=== PATIENT | male | born 1955 | race Caucasian/White ===

== ENCOUNTER → 2024-03-12 14:10 | Outpatient (CLI) | payer MEDICARE, SELFPAY | LOC: WC 14:34 | PROVIDERS: Visit Provider Surgery | DX: L59.8 Other specified disorders of the skin and subcutaneous tissue related to radiation (principal); K12.33 Oral mucositis (ulcerative) due to radiation; C10.9 Malignant neoplasm of oropharynx, unspecified | CPT/HCPCS: 99203; 99212 ==

== ENCOUNTER → 2024-04-01 09:56 | Outpatient (CLI) | payer MEDICARE, SELFPAY ==
--- NOTE | 2024-04-01 09:58 | DI.RAD.S_ITS ---
PROCEDURE: XR CHEST 2V INDICATIONS: Evaluate for HBO treatment TECHNIQUE: 2 views of the chest were acquired. COMPARISON: None. FINDINGS: Surgical changes and devices: A small tube projects over the epigastric region. Lungs and pleura: Lungs are clear. No pleural effusions or pneumothorax. Scar in the right lung apex. Mediastinum: Mediastinal contours are normal. Heart size is normal. Bones and chest wall: No suspicious bony abnormalities. Soft tissues appear unremarkable. IMPRESSION: No acute cardiopulmonary abnormality is seen. Dictated by: Suzanna Kaur M.D. on 04/01/2024 at 13:59 Approved by: Suzanna Kaur M.D. on 04/01/2024 at 14:01
== END ==
LOC: RAD 09:58
PROVIDERS: PCP Student in an Organized Health Care Education/Training Program; Referring Provider Surgery; Visit Provider Surgery
DX: Z01.810 Encounter for preprocedural cardiovascular examination (principal); L59.8 Other specified disorders of the skin and subcutaneous tissue related to radiation
CPT/HCPCS: 71046

== ENCOUNTER → 2024-04-10 08:48 | Outpatient (CLI) | payer MEDICARE, OTHER, SELFPAY | PROVIDERS: PCP Student in an Organized Health Care Education/Training Program; Visit Provider Surgery | DX: L59.8 Other specified disorders of the skin and subcutaneous tissue related to radiation (principal); C10.9 Malignant neoplasm of oropharynx, unspecified; K12.33 Oral mucositis (ulcerative) due to radiation | CPT/HCPCS: 99183; G0277 ==

== ENCOUNTER → 2024-04-11 09:08 | Outpatient (CLI) | payer MEDICARE, OTHER, SELFPAY | PROVIDERS: PCP Student in an Organized Health Care Education/Training Program; Visit Provider Surgery | DX: L59.8 Other specified disorders of the skin and subcutaneous tissue related to radiation (principal); C10.9 Malignant neoplasm of oropharynx, unspecified; K12.33 Oral mucositis (ulcerative) due to radiation | CPT/HCPCS: 99183; G0277 ==

== ENCOUNTER → 2024-04-12 09:38 | Outpatient (CLI) | payer MEDICARE, SELFPAY | LOC: WC 09:48 | PROVIDERS: PCP Student in an Organized Health Care Education/Training Program; Referring Provider Student in an Organized Health Care Education/Training Program; Visit Provider Physician Assistant | DX: L59.8 Other specified disorders of the skin and subcutaneous tissue related to radiation (principal); C10.9 Malignant neoplasm of oropharynx, unspecified; K12.33 Oral mucositis (ulcerative) due to radiation | CPT/HCPCS: 99183; G0277 ==

== ENCOUNTER → 2024-04-15 08:34 | Outpatient (CLI) | payer MEDICARE, SELFPAY | LOC: WC 08:34 | PROVIDERS: PCP Student in an Organized Health Care Education/Training Program; Visit Provider Surgery | DX: L59.8 Other specified disorders of the skin and subcutaneous tissue related to radiation (principal); C10.9 Malignant neoplasm of oropharynx, unspecified; K12.33 Oral mucositis (ulcerative) due to radiation | CPT/HCPCS: 99183; G0277 ==

== ENCOUNTER → 2024-04-16 08:49 | Outpatient (CLI) | payer MEDICARE, SELFPAY | LOC: WC 09:17 | PROVIDERS: PCP Student in an Organized Health Care Education/Training Program; Visit Provider Surgery | DX: L59.8 Other specified disorders of the skin and subcutaneous tissue related to radiation (principal); K12.33 Oral mucositis (ulcerative) due to radiation; C10.9 Malignant neoplasm of oropharynx, unspecified | CPT/HCPCS: 99183; 99211; 99213; G0277 ==

== ENCOUNTER → 2024-04-17 08:34 | Outpatient (CLI) | payer MEDICARE, SELFPAY | LOC: WC 08:35 | PROVIDERS: PCP Student in an Organized Health Care Education/Training Program; Visit Provider Surgery | DX: L59.8 Other specified disorders of the skin and subcutaneous tissue related to radiation (principal); C10.9 Malignant neoplasm of oropharynx, unspecified; K12.33 Oral mucositis (ulcerative) due to radiation | CPT/HCPCS: 99183; G0277 ==

== ENCOUNTER → 2024-04-18 09:12 | Outpatient (CLI) | payer MEDICARE, SELFPAY | LOC: WC 09:14 | PROVIDERS: PCP Student in an Organized Health Care Education/Training Program; Visit Provider Nurse Practitioner Family | DX: L59.8 Other specified disorders of the skin and subcutaneous tissue related to radiation (principal); C10.9 Malignant neoplasm of oropharynx, unspecified; K12.33 Oral mucositis (ulcerative) due to radiation | CPT/HCPCS: 99183; G0277 ==

== ENCOUNTER → 2024-04-19 08:29 | Outpatient (CLI) | payer MEDICARE, SELFPAY | PROVIDERS: PCP Student in an Organized Health Care Education/Training Program; Visit Provider Physician Assistant | DX: L59.8 Other specified disorders of the skin and subcutaneous tissue related to radiation (principal); C10.9 Malignant neoplasm of oropharynx, unspecified; K12.33 Oral mucositis (ulcerative) due to radiation | CPT/HCPCS: 99183; G0277 ==

== ENCOUNTER → 2024-04-22 08:38 | Outpatient (CLI) | payer MEDICARE, SELFPAY | LOC: WC 08:39 | PROVIDERS: PCP Student in an Organized Health Care Education/Training Program; Visit Provider Physician Assistant | DX: L59.8 Other specified disorders of the skin and subcutaneous tissue related to radiation (principal); C10.9 Malignant neoplasm of oropharynx, unspecified; K12.33 Oral mucositis (ulcerative) due to radiation | CPT/HCPCS: 99183; G0277 ==

== ENCOUNTER → 2024-04-23 08:28 | Outpatient (CLI) | payer MEDICARE, OTHER, SELFPAY | PROVIDERS: PCP Student in an Organized Health Care Education/Training Program; Visit Provider Physician Assistant | DX: L59.8 Other specified disorders of the skin and subcutaneous tissue related to radiation (principal); C10.9 Malignant neoplasm of oropharynx, unspecified; K12.33 Oral mucositis (ulcerative) due to radiation | CPT/HCPCS: 99183; G0277 ==

== ENCOUNTER → 2024-04-24 08:53 | Outpatient (CLI) | payer MEDICARE, OTHER, SELFPAY | PROVIDERS: PCP Student in an Organized Health Care Education/Training Program; Visit Provider Nurse Practitioner Family | DX: L59.8 Other specified disorders of the skin and subcutaneous tissue related to radiation (principal); C10.9 Malignant neoplasm of oropharynx, unspecified; K12.33 Oral mucositis (ulcerative) due to radiation | CPT/HCPCS: 99183; G0277 ==

== ENCOUNTER → 2024-04-25 09:05 | Outpatient (CLI) | payer MEDICARE, SELFPAY | LOC: WC 09:05 | PROVIDERS: PCP Student in an Organized Health Care Education/Training Program; Visit Provider Nurse Practitioner Family | DX: L59.8 Other specified disorders of the skin and subcutaneous tissue related to radiation (principal); C10.9 Malignant neoplasm of oropharynx, unspecified; K12.33 Oral mucositis (ulcerative) due to radiation | CPT/HCPCS: 99183; G0277 ==

== ENCOUNTER → 2024-04-26 09:26 | Outpatient (CLI) | payer MEDICARE, SELFPAY | LOC: WC 09:33 | PROVIDERS: PCP Student in an Organized Health Care Education/Training Program; Visit Provider Physician Assistant | DX: L59.8 Other specified disorders of the skin and subcutaneous tissue related to radiation (principal); C10.9 Malignant neoplasm of oropharynx, unspecified; K12.33 Oral mucositis (ulcerative) due to radiation | CPT/HCPCS: 99183; G0277 ==

== ENCOUNTER → 2024-04-29 09:40 | Outpatient (CLI) | payer MEDICARE, SELFPAY | LOC: WC 09:41 | PROVIDERS: PCP Student in an Organized Health Care Education/Training Program; Visit Provider Surgery | DX: L59.8 Other specified disorders of the skin and subcutaneous tissue related to radiation (principal); C10.9 Malignant neoplasm of oropharynx, unspecified; K12.33 Oral mucositis (ulcerative) due to radiation | CPT/HCPCS: 99183; G0277 ==

== ENCOUNTER → 2024-04-30 08:28 | Outpatient (CLI) | payer MEDICARE, SELFPAY | LOC: WC 08:29 | PROVIDERS: PCP Student in an Organized Health Care Education/Training Program; Visit Provider Surgery | DX: L59.8 Other specified disorders of the skin and subcutaneous tissue related to radiation (principal); C10.9 Malignant neoplasm of oropharynx, unspecified; K12.33 Oral mucositis (ulcerative) due to radiation | CPT/HCPCS: 99183; G0277 ==

== ENCOUNTER → 2024-05-01 10:17 | Outpatient (CLI) | payer MEDICARE, SELFPAY | LOC: WC 10:22 | PROVIDERS: PCP Student in an Organized Health Care Education/Training Program; Visit Provider Surgery | DX: L59.8 Other specified disorders of the skin and subcutaneous tissue related to radiation (principal); C10.9 Malignant neoplasm of oropharynx, unspecified; K12.33 Oral mucositis (ulcerative) due to radiation | CPT/HCPCS: 99183; G0277 ==

== ENCOUNTER → 2024-05-02 08:33 | Outpatient (CLI) | payer MEDICARE, SELFPAY | LOC: WC 08:34 | PROVIDERS: PCP Student in an Organized Health Care Education/Training Program; Visit Provider Surgery | DX: L59.8 Other specified disorders of the skin and subcutaneous tissue related to radiation (principal); C10.9 Malignant neoplasm of oropharynx, unspecified; K12.33 Oral mucositis (ulcerative) due to radiation | CPT/HCPCS: 99183; G0277 ==

== ENCOUNTER → 2024-05-03 09:22 | Outpatient (CLI) | payer MEDICARE, SELFPAY | LOC: WC 09:23 | PROVIDERS: PCP Student in an Organized Health Care Education/Training Program; Visit Provider Physician Assistant | DX: L59.8 Other specified disorders of the skin and subcutaneous tissue related to radiation (principal); C10.9 Malignant neoplasm of oropharynx, unspecified; K12.33 Oral mucositis (ulcerative) due to radiation | CPT/HCPCS: 99183; G0277 ==

== ENCOUNTER → 2024-05-06 08:40 | Outpatient (CLI) | payer MEDICARE, SELFPAY | PROVIDERS: PCP Student in an Organized Health Care Education/Training Program; Visit Provider Surgery | DX: L59.8 Other specified disorders of the skin and subcutaneous tissue related to radiation (principal); C10.9 Malignant neoplasm of oropharynx, unspecified; K12.33 Oral mucositis (ulcerative) due to radiation | CPT/HCPCS: 99183; G0277 ==

== ENCOUNTER → 2024-05-06 11:50 | Outpatient (CLI) | payer MEDICARE, OTHER, SELFPAY ==
[2024-05-06 12:32] LABS: Estimated Glomerular Filt Rate > 60 mL/min (>60)
== END ==
PROVIDERS: PCP Student in an Organized Health Care Education/Training Program; Referring Provider Radiology Diagnostic Radiology; Visit Provider Radiology Diagnostic Radiology
DX: C10.9 Malignant neoplasm of oropharynx, unspecified (principal); K76.0 Fatty (change of) liver, not elsewhere classified; L59.8 Other specified disorders of the skin and subcutaneous tissue related to radiation; K12.33 Oral mucositis (ulcerative) due to radiation
CPT/HCPCS: 82565; G0277

== ENCOUNTER → 2024-05-07 09:03 | Outpatient (CLI) | payer MEDICARE, SELFPAY | PROVIDERS: PCP Student in an Organized Health Care Education/Training Program; Visit Provider Surgery | DX: L59.8 Other specified disorders of the skin and subcutaneous tissue related to radiation (principal); C10.9 Malignant neoplasm of oropharynx, unspecified; K12.33 Oral mucositis (ulcerative) due to radiation | CPT/HCPCS: 99183; G0277 ==

== ENCOUNTER → 2024-05-07 12:52 | Outpatient (CLI) | payer MEDICARE, SELFPAY ==
--- NOTE | 2024-05-07 12:55 | DI.CT.S_ITS ---
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 Additional oblique axial 3.0 mm sections acquired through the pharynx. 3 mm thick coronal and sagittal reformats were generated. For radiation dose reduction, the following was used: automated exposure control. COMPARISON: [place], [place], [place] PET CT FUSION SKULL 2 THIGH, 01/17/2024, 12:59. FINDINGS: Image quality: Excellent. Lymph nodes: No enlarged lymph nodes seen throughout the neck. Vessels: Visualized vasculature appears patent. Mild atherosclerotic vascular calcifications. Neck spaces: Cystic necrotic appearing collection within the right palatine region of prior mass measuring 3.1 x 1.9 x 2.4 centimeters (AP by TV by cc). This is mostly fluid-filled with a few locules of gas. The vocal cords, false vocal cords, pyriform sinuses, epiglottis, vallecula, and tongue base all appear normal. Extramucosal spaces appear unremarkable. Glands: The parotid and submandibular glands appear normal. Thyroid gland demonstrates no significant abnormality. Miscellaneous: Visualized brain and orbits appear normal. Biapical pleuroparenchymal scarring. Lung apices are otherwise clear. Superficial soft tissues appear normal. Bones: No suspicious bony lesions. Mild maxillary sinus mucosal thickening. Bilateral maxillary molars are absent with lucency seen in the areas of prior teeth, this is stable in appearance compared to prior. [id number] bilateral TMJ arthritis. Partial opacification of the bilateral mastoid air cells. Degenerative changes of the spine. IMPRESSION: In the region of prior right palatine mass, there is a cystic necrotic appearing area measuring 3.1 x 1.9 x 2.4 centimeters, mostly containing fluid with small locules of gas. Findings may be post treatment in etiology. Infection is also in the differential and direct visualization is recommended for further evaluation. Attention on follow-up imaging to exclude recurrent disease. Within the right parapharyngeal mass scatter spaces, there is thickening of the muscle and edema within the fat planes which is likely reactive in etiology. Attention on follow-up. No enlarged cervical lymph nodes. Stable appearance of multiple maxillary molars missing with osseous lucency seen within the region of prior molars. Recommend clinical correlation and dental exam as clinically indicated. 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 Dictated by: Ernesto Gorman M.D. on 05/09/2024 at 13:59 Approved by: Ernesto Gorman M.D. on 05/09/2024 at 14:10
--- NOTE | 2024-05-07 12:55 | DI.CT.S_ITS ---
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 After the administration of intravenous contrast, 5 mm thick sections acquired from the lung apices to the iliac crests. 5 mm coronal and sagittal reformats were performed, with additional 7 mm coronal MIP reformats through the lungs. For radiation dose reduction, the following was used: automated exposure control, adjustment of mA and/or kV according to patient size. COMPARISON: [facility], [place], CT NECK AND CHEST, 11/29/2023, 12:56. [facility], [place], [place] PET CT FUSION SKULL 2 THIGH, 01/17/2024, 12:59. [facility], CT, CT SOFT TISSUE NECK W CON, 05/07/2024, 14:01. [facility], CT, CT HEAD/BRAIN WO/W CON, 05/07/2024, 14:01. FINDINGS: Image quality: Diagnostic. CHEST: Lower Neck: No enlarged lymph nodes. Thyroid: No thyroid nodules which require sonographic follow up, per consensus guidelines. Axillae: No enlarged lymph nodes. Chest Wall: Unremarkable. Bones: Unremarkable. Lungs and Pleura: No pneumothorax or pleural effusions. No consolidation or suspicious nodules. The previously seen potential left upper lobe nodule is not seen on the current study. Heart: Heart size is normal. No pericardial effusion. Prominent coronary artery calcification is seen. Thoracic Vessels: The aorta and pulmonary arteries demonstrate normal size. Mediastinum and Debra: No enlarged lymph nodes. Esophagus: No wall thickening. No hiatal hernia. ABDOMEN: Liver: No solid mass. Gallbladder: No radiopaque gallstones or wall thickening. Biliary ducts: No biliary dilation. Pancreas: No ductal dilation. Spleen: Size is within normal limits. Adrenal Glands: No adrenal nodules. Kidneys and Ureters: No hydronephrosis. No solid mass. No complex renal cystic lesion which requires follow up. There is a 4 mm nonobstructing right-sided kidney stone. A 1 mm nonobstructing left-sided kidney stone is also seen. Stomach and Bowel: A gastrostomy tube is seen in place. Normal colonic caliber, without significant wall thickening. Colonic diverticulosis is seen, without findings of active diverticulitis. No dilated loops of small bowel are seen. Peritoneum: No abnormal intraperitoneal fluid. No free air. Ventral Wall: No significant ventral hernia. Abdominal Nodes: No retroperitoneal or mesenteric adenopathy by size criteria. Vessels: Aorta and inferior vena cava are normal in size. Atherosclerotic calcification is noted. PELVIS: Pelvic Organs: Unremarkable. Bladder: No bladder wall thickening, accounting for underdistention. Pelvic Nodes: No enlarged lymph nodes. Miscellaneous: No inguinal hernias are seen. Bones: No aggressive osseous abnormality. No focal abnormality of the T4 level is seen. This patient has transitional lumbar anatomy. There are 12 pairs of ribs. The L5 level is transitional and is highly sacralized on the right. Mild levoconvex scoliotic curvature is noted. Age-appropriate bony degenerative changes are seen. IMPRESSION: No findings of metastatic disease can be seen. The previously seen potential left upper lobe nodule is not seen on the current study. No focal abnormality seen at the T4 level. 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 on 05/08/2024 at 10:18 Approved by: Dashawn Lau M.D. on 05/08/2024 at 10:25
--- NOTE | 2024-05-07 12:55 | DI.CT.S_ITS ---
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 For radiation dose reduction, the following was used: automated exposure control, adjustment of mA and/or kV according to patient size. COMPARISON: None. FINDINGS: Image quality: Excellent. CSF Spaces: Basal cisterns are patent. No extra-axial fluid collections. Ventricles are normal in size and shape. Brain: No midline shift. No intracranial bleeds or masses. No abnormal intracranial enhancement. Knowles-white interface appears normal. Skull and face: Calvarium and visualized facial bones appear intact, without suspicious lesions. Sinuses: Mild mucosal thickening noted along the floor of the maxillary sinuses IMPRESSION: Unremarkable CT of the brain with and without contrast Approved by: Abe John M.D. on 05/08/2024 at 18:20
== END ==
PROVIDERS: PCP Student in an Organized Health Care Education/Training Program; Referring Provider Radiology Radiation Oncology; Visit Provider Radiology Radiation Oncology
DX: C05.1 Malignant neoplasm of soft palate (principal); C76.0 Malignant neoplasm of head, face and neck; I25.10 Atherosclerotic heart disease of native coronary artery without angina pectoris; N20.0 Calculus of kidney; K57.90 Diverticulosis of intestine, part unspecified, without perforation or abscess without bleeding; M41.9 Scoliosis, unspecified; M26.643 Arthritis of bilateral temporomandibular joint; Z93.1 Gastrostomy status
CPT/HCPCS: 70470; 70491; 71260; 74160; Q9967

== ENCOUNTER → 2024-05-08 08:40 | Outpatient (CLI) | payer MEDICARE, SELFPAY | LOC: WC 08:41 | PROVIDERS: PCP Student in an Organized Health Care Education/Training Program; Visit Provider Surgery | DX: L59.8 Other specified disorders of the skin and subcutaneous tissue related to radiation (principal); C10.9 Malignant neoplasm of oropharynx, unspecified; K12.33 Oral mucositis (ulcerative) due to radiation | CPT/HCPCS: 99183; G0277 ==

== ENCOUNTER → 2024-05-09 08:45 | Outpatient (CLI) | payer MEDICARE, SELFPAY | LOC: WC 08:47 | PROVIDERS: PCP Student in an Organized Health Care Education/Training Program; Visit Provider Surgery | DX: L59.8 Other specified disorders of the skin and subcutaneous tissue related to radiation (principal); C10.9 Malignant neoplasm of oropharynx, unspecified; K12.33 Oral mucositis (ulcerative) due to radiation | CPT/HCPCS: 99183; G0277 ==

== ENCOUNTER → 2024-05-10 09:01 | Outpatient (CLI) | payer MEDICARE, SELFPAY | LOC: WC 09:02 | PROVIDERS: PCP Student in an Organized Health Care Education/Training Program; Visit Provider Physician Assistant | DX: L59.8 Other specified disorders of the skin and subcutaneous tissue related to radiation (principal); C10.9 Malignant neoplasm of oropharynx, unspecified; K12.33 Oral mucositis (ulcerative) due to radiation | CPT/HCPCS: 99183; G0277 ==

== ENCOUNTER → 2024-05-13 08:43 | Outpatient (CLI) | payer MEDICARE, SELFPAY | LOC: WC 08:44 | PROVIDERS: PCP Student in an Organized Health Care Education/Training Program; Referring Provider Student in an Organized Health Care Education/Training Program; Visit Provider Surgery | DX: L59.8 Other specified disorders of the skin and subcutaneous tissue related to radiation (principal); C10.9 Malignant neoplasm of oropharynx, unspecified; K12.33 Oral mucositis (ulcerative) due to radiation | CPT/HCPCS: 99183; G0277 ==

== ENCOUNTER → 2024-05-14 09:02 | Outpatient (CLI) | payer MEDICARE, SELFPAY | LOC: WC 09:05 | PROVIDERS: PCP Student in an Organized Health Care Education/Training Program; Referring Provider Student in an Organized Health Care Education/Training Program; Visit Provider Surgery | DX: L59.8 Other specified disorders of the skin and subcutaneous tissue related to radiation (principal); C10.9 Malignant neoplasm of oropharynx, unspecified; K12.33 Oral mucositis (ulcerative) due to radiation | CPT/HCPCS: 99183; 99212; 99213; G0277 ==

== ENCOUNTER → 2024-05-15 08:38 | Outpatient (CLI) | payer MEDICARE, SELFPAY | LOC: WC 08:39 | PROVIDERS: PCP Student in an Organized Health Care Education/Training Program; Visit Provider Surgery | DX: L59.8 Other specified disorders of the skin and subcutaneous tissue related to radiation (principal); C10.9 Malignant neoplasm of oropharynx, unspecified; K12.33 Oral mucositis (ulcerative) due to radiation | CPT/HCPCS: 99183; G0277 ==

== ENCOUNTER → 2024-05-21 09:27 | Outpatient (CLI) | payer MEDICARE, OTHER, SELFPAY | PROVIDERS: PCP Student in an Organized Health Care Education/Training Program; Visit Provider Surgery | DX: L59.8 Other specified disorders of the skin and subcutaneous tissue related to radiation (principal); C10.9 Malignant neoplasm of oropharynx, unspecified; K12.33 Oral mucositis (ulcerative) due to radiation | CPT/HCPCS: 99183; G0277 ==

== ENCOUNTER → 2024-05-22 09:46 | Outpatient (CLI) | payer MEDICARE, OTHER, SELFPAY | PROVIDERS: PCP Student in an Organized Health Care Education/Training Program; Visit Provider Surgery | DX: L59.8 Other specified disorders of the skin and subcutaneous tissue related to radiation (principal); C10.9 Malignant neoplasm of oropharynx, unspecified; K12.33 Oral mucositis (ulcerative) due to radiation | CPT/HCPCS: 99183; G0277 ==